=== PATIENT | male | born 1955 | race Caucasian/White ===

== ENCOUNTER 2017-07-21 18:31 | Emergency (ER) | payer OTHER, MEDICARE ==
[~2017-07-21 18:31] MED LIST: AMLODIPINE BESY10 MG PO; ASPIRIN EC81 MG PO; ATORVASTATIN CA80 MG PO; CARVEDILOL6.25 MG PO; CLOPIDOGREL75 MG PO; FUROSEMIDE20 MG PO; LISINOPRIL5 MG PO; SPIRONOLACTONE25 MG PO; WARFARIN SODIUM10 MG PO; WARFARIN SODIUM5 MG PO
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
--- NOTE | 2017-07-24 10:03 | CONS ---
[facility] [address] [place], [place] [address] Signed DATE OF CONSULTATION: 07/21/2017 ADDENDUM: TIME: 10:35 p.m. SUBJECTIVE: The patient has remained hemodynamically stable, has undergone a CT scan of the chest, abdomen, and pelvis as a CAT scan is now functional again. My review of the studies as well as the report from the radiologist showed no sign of acute injury specifically no splenic, renal, or hepatic injury. No sign of free air. He has a considerable amount of intraabdominal fat. The bladder is somewhat distended. He has been able to void. Dr. Chu, the emergency room physician had called the an ENT consult at [facility] (Dr. Ball at [phone]), who recommended that he be seen in a week regarding the left orbital fracture. My clinical examination shows no sign of muscle entrapment and his extraocular eye movement appears to be normal. He does have blood in the sinus and recommendation by Dr. Ball has included recommendation for steroids and antibiotic. No specific therapy would be undertaken for at least a week until swelling has resolved. I reviewed this with the patient and his and have recommended admission to the hospital overnight for pain control. Steroid and antibiotic administration as previously noted, but the patient adamantly refuses. He does continue to smoke quite heavily. Nicotine patch has been offered to him, which he accepts, but now declines. The patient does not want to stay overnight at. I think it would be most prudent if he did give his underlying significant medical comorbidities for observation and so forth, but despite my explanations to him and his , he simply refuses. On that basis, I have conferred with Dr. Chu, emergency room physician who will help coordinate his discharge and information will be given as regard to his followup with the ENT surgeon at [facility]. The patient has should have a decline or change his mind as regards admission to the hospital. He is most welcome to return obviously. Addison Cooper MD Electronically Signed By: ADDISON COOPER MD 07/24/171002 PATIENT NAME: OLIVIA BARRIOS CONSULTATION DATE OF : 59 REPORT #: [id number] PHYSICIAN: ADDISON COOPER MD PCP: KAN VASQUEZ MD REPORT IS CONFIDENTIAL AND NOT TO BE RELEASED WITHOUT AUTHORIZATION [facility] [address] [place], [place] [address] Signed [facility] /[id number] cc: Shelli Chu MD [facility] Copies: SHELLI CHU MD ~ Electronically Signed By: ADDISON COOPER MD 07/24/17 100 PATIENT NAME: OLIVIA BARRIOS CONSULTATION DATE OF : 59 REPORT #: [id number] PHYSICIAN: ADDISON COOPER MD PCP: KAN VASQUEZ MD REPORT IS CONFIDENTIAL AND NOT TO BE RELEASED WITHOUT AUTHORIZATION
== END 2017-07-21 22:02 | disposition left against medical advice (07) ==
LOC: ED 18:31
DX: S02.32XA Fracture of orbital floor, left side, initial encounter for closed fracture (principal); S00.212A Abrasion of left eyelid and periocular area, initial encounter; S00.81XA Abrasion of other part of head, initial encounter; R10.9 Unspecified abdominal pain; I10 Essential (primary) hypertension; I25.2 Old myocardial infarction; F17.200 Nicotine dependence, unspecified, uncomplicated; Z88.8 Allergy status to other drugs, medicaments and biological substances; Z79.899 Other long term (current) drug therapy; Z79.82 Long term (current) use of aspirin; V39.9XXA Occupant (driver) (passenger) of three-wheeled motor vehicle injured in unspecified traffic accident, initial encounter
CPT/HCPCS: 36415; 70450; 70486; 71045; 71260; 72125; 73110; 73130; 74177; 76705; 80053; 81001; 82150; 82550; 83690; 85025; 85027; 85610; 85730; 86850; 86900; 86901; 86920; 96374; 96375; 99284; G0480; J1170; J2405; Q9967